=== PATIENT | male | born 1980 | race Caucasian/White ===

== ENCOUNTER 2019-09-22 16:20 | Emergency (ER) | payer OTHER ==
[~2019-09-22] VITALS: Ht 177.8 cm; Wt 90.7 kg
[2019-09-22 16:20] VITALS: BP 139/91
[~2019-09-22 16:20] MED LIST: NOHOMEMEDICATIONS; NORCO 5-325 TA1 EACH PO
[2019-09-22 16:50] LABS: URINE BILIRUBIN NEGATIVE (Negative); URINE BLOOD NEGATIVE (Negative); URINE CLARITY CLEAR; URINE COLOR YELLOW; URINE GLUCOSE-RANDOM* NEGATIVE (Negative); URINE KETONES TRACE (Negative); URINE LEUKOCYTES-REFLEX NEGATIVE (Negative); URINE NITRITE-REFLEX NEGATIVE (Negative); URINE PROTEIN (DIPSTICK) NEGATIVE (Negative); URINE SPECIFIC GRAVITY >= 1.030 (1.005-1.035); URINE UROBILINOGEN 0.2 E.U./dl (0.2-1.0)
[2019-09-22] MEDS ORDERED: TESSALON PERLE100 MG PO (17:24)
[2019-09-22] MEDS ORDERED: MUCINEX DM ER1 EACH PO (17:24)
== END 2019-09-22 17:36 | disposition home or self-care (01) ==
LOC: ER 16:20
PROVIDERS: Nurse Practitioner Family
DX: J06.9 Acute upper respiratory infection, unspecified (principal); Z20.2 Contact with and (suspected) exposure to infections with a predominantly sexual mode of transmission

== ENCOUNTER 2020-01-22 17:46 | Inpatient (IN) | payer OTHER | END 2020-01-26 14:41 | disposition home or self-care (01) | DRG 863 | LOC: ER 17:46 → EROBS 23:38 → 4S 01-23 00:19 | PROVIDERS: ADMIT Internal Medicine | DX: T81.49XA Infection following a procedure, other surgical site, initial encounter (principal); L03.116 Cellulitis of left lower limb; D72.829 Elevated white blood cell count, unspecified; S82.302A Unspecified fracture of lower end of left tibia, initial encounter for closed fracture; S82.402A Unspecified fracture of shaft of left fibula, initial encounter for closed fracture; Z71.51 Drug abuse counseling and surveillance of drug abuser; V89.2XXA Person injured in unspecified motor-vehicle accident, traffic, initial encounter; Y83.8 Other surgical procedures as the cause of abnormal reaction of the patient, or of later complication, without mention of misadventure at the time of the procedure; Y92.89 Other specified places as the place of occurrence of the external cause; Z86.14 Personal history of Methicillin resistant Staphylococcus aureus infection; Y93.89 Activity, other specified; Y99.8 Other external cause status ==

== ENCOUNTER 2020-02-03 08:39 | Emergency (ER) | payer OTHER ==
[~2020-02-03] VITALS: Ht 177.8 cm; Wt 81.7 kg
[~2020-02-03 08:39] MED LIST changes: +ASPIR 8181 M1 PO; +KEFLEX500 M1 PO; +MUCINEX DM ER1 EACH PO; +NORCO 10-325 T1 EACH PO; +TESSALON PERLE100 MG PO
[2020-02-03 12:04] VITALS: BP 137/81
[2020-02-03] MEDS ORDERED: SENNA-DOCUSATE1 EAC1 PO (12:12)
[2020-02-03] MEDS ORDERED: NORCO 10-325 T1 EACH PO (12:12)
== END 2020-02-03 12:15 | disposition home or self-care (01) ==
LOC: ER 08:39
DX: L03.115 Cellulitis of right lower limb (principal); F12.90 Cannabis use, unspecified, uncomplicated; Z79.82 Long term (current) use of aspirin; Z86.14 Personal history of Methicillin resistant Staphylococcus aureus infection

== ENCOUNTER 2020-02-25 20:44 | Emergency (ER) | payer OTHER ==
[~2020-02-25] VITALS: Ht 172.7 cm; Wt 86.2 kg
[~2020-02-25 20:44] MED LIST changes: +SENNA-DOCUSATE1 EAC1 PO
[2020-02-25] MEDS ORDERED: HYDROCORTISONE30 GM TOP (22:39)
[2020-02-25 22:54] VITALS: BP 132/85
== END 2020-02-25 22:57 | disposition home or self-care (01) ==
LOC: ER 20:44
DX: L25.9 Unspecified contact dermatitis, unspecified cause (principal); S82.201 Unspecified fracture of shaft of right tibia; S82.401 Unspecified fracture of shaft of right fibula; Z86.14 Personal history of Methicillin resistant Staphylococcus aureus infection; Z98.890 Other specified postprocedural states; Z79.899 Other long term (current) drug therapy; Z79.2 Long term (current) use of antibiotics; V49.88XD Car occupant (driver) (passenger) injured in other specified transport accidents, subsequent encounter